=== PATIENT | female | born 1960 | race Caucasian/White ===

== ENCOUNTER 2023-11-27 10:46 | Inpatient (IN) ==
[2023-11-27] MEDS ORDERED: IOPAMIDOL 100 ML BOTTLE IV ONE (10:47)
[2023-11-27] MEDS: ASPIRIN 81 MG TAB.CHEW CHEWED ONE (11:12)
[2023-11-27] MEDS: METOPROLOL TARTRATE 5 MG/5 ML VIAL IV ONE (11:12)
[2023-11-27] MEDS: 0.9 % SODIUM CHLORIDE 1,000 ML IV ONE ×2 (11:12→13:02)
[2023-11-27 11:49] LABS: Basophils # (Auto) 0.02 K/mcL (0.00-0.30); Basophils % (Auto) 0.1 % (0.0-2.0); Eosinophils # (Auto) 0.22 K/mcL (0.00-0.70); Eosinophils % (Auto) 1.1 % (0.0-7.0); Hematocrit 39.9 % (34.1-44.9); Hemoglobin 12.7 g/dL (11.2-15.7); Lymphocytes # (Auto) 2.75 K/mcL (1.50-4.80); Lymphocytes % (Auto) 13.2 % (15.5-49.0); Mean Cell Volume 87.3 fL (80.0-100.0); Mean Corpuscular HGB Conc 31.8 g/dL (31.0-36.0); Mean Platelet Volume 9.1 fL (8.8-12.5); Monocytes # (Auto) 1.37 K/mcL (0.10-0.90); Monocytes % (Auto) 6.6 % (1.0-12.0); Neutrophils % (Auto) 78.7 % (38.0-78.0); Platelet Count 720 K/mcL (140-440); RBC 4.57 M/mcL (3.59-5.38); Red Cell Distribution Width 13.9 % (11.5-14.5); WBC 20.9 K/mcL (4.5-11.0)
[2023-11-27] MEDS: ONDANSETRON 4 MG/2 ML VIAL IV ONE (11:56)
[2023-11-27] MEDS: OXYBUTYNIN CHLORIDE 5 MG TABLET PO ONE (12:01)
[2023-11-27 12:08] LABS: ALT/SGPT 22 U/L (<40); AST/SGOT 25 U/L (<32); Albumin 4.5 gm/dL (3.2-5.2); Albumin/Globulin Ratio 1.3 (1.0-2.3); Alkaline Phosphatase 163 U/L (39-117); Bilirubin,Total 0.6 mg/dL (0.1-1.0); Blood Urea Nitrogen 19 mg/dL (8-23); Calcium 10.6 mg/dL (8.6-10.4); Carbon Dioxide 21 mmol/L (22-30); Chloride 90 mmol/L (96-108); Globulin 3.6 gm/dL (2.2-3.7); Glomerular Filtration Rate 44; Glucose 257 mg/dL (70-105)
[2023-11-27] MEDS: cefTRIAXone 1 GM VIAL IV ONE (12:23)
[2023-11-27 12:32] LABS: Amphetamine Screen,Urine None detected; Barbiturate Screen,Urine None detected; Benzodiazepines Screen,Urine None detected; Cannabinoid Screen,Urine Suspect Positive; Cocaine Screen,Urine None detected; Opiate Screen,Urine None detected; Oxycodone, Urine Screen None detected; Phencyclidine Screen,Urine None detected
[2023-11-27 12:38] LABS: Appearance,Urine TURBID (Clear); Bilirubin,Urine Negative (Negative); Color,Urine AMBER; Culture Indicated,Urine No; Glucose,Urine (UA) 50 mg/dL (Negative); Ketones,Urine Negative (Negative); Leukocyte Esterase,Urine 75 /uL (Negative); Nitrate,Urine Negative (Negative); Protein,Urine Negative (Negative); Specific Gravity,Urine 1.035 (1.000-1.035); Urine Blood 0.03 mg/dL (Negative); Urine RBC 0 /hpf (0-3); Urine Squamous Epithelial Cell 0 /hpf (0-4); Urine WBC 0 /hpf (0-4); Urobilinogen,Urine Negative
[2023-11-27 12:42] LABS: Prothrombin Time 13.6 sec (11.9-14.5)
[2023-11-27] MEDS ORDERED: SENNOSIDES 1 TABLET PO PRN (17:12)
[2023-11-27] MEDS ORDERED: POLYETHYLENE GLYCOL 3350 17 GM PACKET PO PRN (17:12)
[2023-11-27] MEDS ORDERED: DEXTROSE 31 GM ORAL.SUSP PO PRN (17:12)
[2023-11-27] MEDS ORDERED: POTASSIUM CHLORIDE 20 MEQ TABLET PO PRN ×2 (17:12)
[2023-11-27] MEDS ORDERED: POTASSIUM CHLORIDE 40 MEQ in DEXTROSE 5% IN WATER 500 ML IV PRN (17:12)
[2023-11-27] MEDS ORDERED: DEXTROSE 50% 50 ML VIAL IV PRN (17:12)
[2023-11-27] MEDS ORDERED: LABETALOL HCL 20 MG/4 ML VIAL IV PRN (17:12)
[2023-11-27] MEDS ORDERED: ACETAMINOPHEN 325 MG TABLET PO PRN (17:12)
[2023-11-27] MEDS ORDERED: IPRATROPIUM/ALBUTEROL 3 ML AMPUL.NEB NEB PRN (17:12)
[2023-11-27] MEDS: INSULIN LISPRO 1 UNIT/0.01 ML UNIT SQ SCH (18:10)
[2023-11-27 18:23] LABS: Estimated Average Glucose(eAG) 189 mg/dL; Hemoglobin A1C 8.2 % Hgb (4.0-6.0)
[2023-11-27] MEDS: 0.9 % SODIUM CHLORIDE 1,000 ML IV SCH (18:52)
[2023-11-27] MEDS: HYDROcodone/APAP 5/325MG TABLET PO PRN (18:57)
[2023-11-27] MEDS ORDERED: BENZOCAINE/MENTHOL 1 LOZENGE PO PRN (19:41)
[2023-11-27] MEDS ORDERED: LORazepam 1 MG TABLET PO PRN (19:53)
[2023-11-27] MEDS: PIPERACILLIN SODIUM/TAZOBACTAM 3.375 GM in DEXTROSE 5% IN WATER 50 ML IV ONE (20:10)
[2023-11-27] MEDS: GABAPENTIN 400 MG CAPSULE PO SCH (20:21)
[2023-11-27] MEDS: AMITRIPTYLINE 25 MG TABLET PO SCH (20:21)
[2023-11-27] MEDS: DOCUSATE SODIUM 100 MG CAPSULE PO SCH (20:22)
[2023-11-27] MEDS: ATORVASTATIN 40 MG TABLET PO SCH (20:22)
[2023-11-27] MEDS: 0.9 % SODIUM CHLORIDE 10 ML SYRINGE IV SCH (20:22)
[2023-11-27] MEDS: LORazepam 2 MG/ML VIAL IV PRN (20:29)
[2023-11-27] MEDS: PIPERACILLIN SODIUM/TAZOBACTAM 3.375 GM in DEXTROSE 5% IN WATER 100 ML IV SCH (20:59)
[2023-11-28 06:33] LABS: Basophils # (Auto) 0.02 K/mcL (0.00-0.30); Basophils % (Auto) 0.2 % (0.0-2.0); Eosinophils # (Auto) 0.48 K/mcL (0.00-0.70); Eosinophils % (Auto) 4.4 % (0.0-7.0); Hematocrit 31.9 % (34.1-44.9); Hemoglobin 9.7 g/dL (11.2-15.7); Lymphocytes # (Auto) 1.68 K/mcL (1.50-4.80); Lymphocytes % (Auto) 15.6 % (15.5-49.0); Mean Cell Volume 92.2 fL (80.0-100.0); Mean Corpuscular HGB Conc 30.4 g/dL (31.0-36.0); Mean Platelet Volume 8.8 fL (8.8-12.5); Monocytes # (Auto) 0.88 K/mcL (0.10-0.90); Monocytes % (Auto) 8.2 % (1.0-12.0); Neutrophils % (Auto) 71.4 % (38.0-78.0); Platelet Count 441 K/mcL (140-440); RBC 3.46 M/mcL (3.59-5.38); Red Cell Distribution Width 14.2 % (11.5-14.5); WBC 10.8 K/mcL (4.5-11.0)
[2023-11-28 06:47] LABS: ALT/SGPT 11 U/L (<40); AST/SGOT 21 U/L (<32); Albumin 3.6 gm/dL (3.2-5.2); Albumin/Globulin Ratio 1.4 (1.0-2.3); Alkaline Phosphatase 120 U/L (39-117); Bilirubin,Direct < 0.2 mg/dL (0-0.3); Bilirubin,Total 0.4 mg/dL (0.1-1.0); Blood Urea Nitrogen 14 mg/dL (8-23); Calcium 8.5 mg/dL (8.6-10.4); Carbon Dioxide 23 mmol/L (22-30); Chloride 99 mmol/L (96-108); Globulin 2.6 gm/dL (2.2-3.7); Glomerular Filtration Rate 54; Glucose 182 mg/dL (70-105); Lactate Dehydrogenase 130 U/L (135-225); Triglycerides 239 mg/dL (<150); Uric Acid 7.4 mg/dL (2.5-8.0)
[2023-11-28] MEDS: LEVOTHYROXINE 100 MCG TABLET PO SCH (08:51)
[2023-11-28] MEDS: buPROPion 150 MG TAB.XL.24H PO SCH (08:51)
[2023-11-28] MEDS: ESCITALOPRAM 20 MG TABLET PO SCH (08:51)
[2023-11-28] MEDS: OMEPRAZOLE 20 MG CAPSULE PO SCH (08:51)
[2023-11-28] MEDS: ENOXAPARIN 40 MG/0.4 ML SYRINGE SQ SCH (08:52)
[2023-11-28] MEDS: METOPROLOL SUCCINATE 50 MG TAB.XL.24H PO SCH (08:52)
[2023-11-28] MEDS: INSULIN GLARGINE, HUMAN 1 UNIT/0.01 ML SQ SCH (08:53)
[2023-11-28] MEDS: risperiDONE 1 MG TABLET PO SCH (08:53)
[2023-11-28] MEDS: ASPIRIN 81 MG TAB.CHEW PO SCH (08:55)
[2023-11-28] MEDS: MAGNESIUM SULFATE 2 GM/50 ML BAG IV PRN (10:17)
[2023-11-28] MEDS: NICOTINE 7 MG PATCH TOPICAL SCH (10:18)
[2023-11-28] MEDS: Budesonide-Formoterol 10.2 GM HFA aerosol inhaler INH SCH (10:45)
[2023-11-28] MEDS ORDERED: VANCOMYCIN PER PHARMACY IV SCH (16:47)
[2023-11-28] MEDS: VANCOMYCIN 1,000 MG in 0.9 % SODIUM CHLORIDE 250 ML IV SCH (17:53)
[2023-11-29] MEDS: METOPROLOL SUCCINATE 25 MG TAB.XL.24H PO SCH (07:59)
[2023-11-29 09:36] LABS: ALT/SGPT 13 U/L (<40); AST/SGOT 17 U/L (<32); Albumin 3.8 gm/dL (3.2-5.2); Albumin/Globulin Ratio 1.4 (1.0-2.3); Alkaline Phosphatase 117 U/L (39-117); Bilirubin,Direct < 0.2 mg/dL (0-0.3); Bilirubin,Total 0.2 mg/dL (0.1-1.0); Blood Urea Nitrogen 14 mg/dL (8-23); Calcium 8.7 mg/dL (8.6-10.4); Carbon Dioxide 22 mmol/L (22-30); Chloride 98 mmol/L (96-108); Globulin 2.7 gm/dL (2.2-3.7); Glomerular Filtration Rate 60; Glucose 231 mg/dL (70-105); Lactate Dehydrogenase 149 U/L (135-225); Phosphorous 3.2 mg/dL (2.5-4.5); Triglycerides 236 mg/dL (<150); Uric Acid 5.8 mg/dL (2.5-8.0)
[2023-11-29] MEDS ORDERED: METOPROLOL SUCCINATE 25 MG TAB.XL.24H PO SCH (10:30)
[2023-11-29] MEDS: ONDANSETRON 4 MG/2 ML VIAL IV PRN (18:25)
[2023-11-30] MEDS: OXYBUTYNIN CHLORIDE 5 MG TAB.XL.24H PO SCH (08:17)
[2023-11-30] MEDS: EZETIMIBE 10 MG TABLET PO SCH (08:17)
== END 2023-11-30 10:32 | disposition home or self-care (01) | DRG 871 ==
LOC: ED 10:46 → MEDSUR 17:05
PROVIDERS: ADMIT Internal Medicine; ATTEND Internal Medicine